=== PATIENT | male | born 1950 ===

== ENCOUNTER → 2024-05-13 10:38 | Outpatient (REF) | payer MEDICARE, OTHER, SELFPAY | LOC: CLAB 10:38 | PROVIDERS: ATTENDING PHYSICIAN Specialist | DX: R97.20 Elevated prostate specific antigen [PSA] (principal) | CPT/HCPCS: 88305 ==

== ENCOUNTER → 2024-05-29 07:53 | Outpatient (REF) | payer MEDICARE, OTHER, SELFPAY | LOC: RAD 07:53 | PROVIDERS: ATTENDING PHYSICIAN Specialist; FAMILY PHYSICIAN Family Medicine | DX: C61 Malignant neoplasm of prostate (principal) | CPT/HCPCS: 78306; A9503 ==

== ENCOUNTER → 2024-06-09 19:00 | Outpatient (REF) | payer MEDICARE, OTHER, SELFPAY | LOC: MRI 19:00 | PROVIDERS: ATTENDING PHYSICIAN Specialist; FAMILY PHYSICIAN Family Medicine | DX: C61 Malignant neoplasm of prostate (principal) | CPT/HCPCS: 72197; A9575 ==

== ENCOUNTER 2024-11-28 16:17 | Inpatient (IN) | payer MEDICARE, OTHER, SELFPAY ==
[2024-11-28 13:12] VITALS: BP 136/80
--- NOTE | 2024-11-28 14:22 | ED.GENMED ---
History of Present Illness
General
Chief Complaint: Urinary Symptoms
Source: patient and spouse
Exam Limitations: none
Time Seen by Provider: 11/28/24 13:49
Nursing documentation reviewed up to this point in time: agreed with
History of Present Illness
History of Present Illness:
74-year-old male with history metastatic prostate cancer presenting to the emergency department with chills. Patient reports that he noticed shaking chills yesterday midday and was unable to get warm despite multiple blankets. He states he also
felt very weak. Today�chills are somewhat better than they were yesterday although he still feels intermittently cold. He talked to his oncologist who recommended that he come to the emergency department for a sepsis workup.
Patient denies any fever, his temp is been 99F at home. He denies any shortness of breath or cough. He denies any abdominal pain or new back pain.
Patient does self catheterize often given prostate cancer. He has no history of UTIs.
No known sick contacts.
Patient is currently undergoing treatment for prostate cancer.
Review of Systems
Review of Systems
Allergies reviewed?: Yes
All Other Systems: ROS reviewed and negative except as documented in HPI and ROS
Phy Exam
Physical Exam
Physical Exam:
Vitals: Tachycardic, mildly hypertensive, otherwise vital signs stable. Afebrile
General: Patient is well appearing, no acute distress
Skin: Warm and dry, no rashes or lesions
Head: Normocephalic, atraumatic
Eyes: Sclera nonicteric.
Throat: Protecting airway
Neck: Normal ROM, no cervical spine tenderness, no meningismus
Cardiac: Regular rate and rhythm, no murmurs. Perfusing well.
Pulm: Normal respiratory effort, no wheezes, rales, rhonchi heard on exam
.
Abdomen: Abdomen soft. No abdominal tenderness. No CVA tenderness
Extremities: No evidence of cyanosis or edema. Palpable DP pulses bilaterally.
Neuro: AAOx3. Grossly intact.
Psychiatric: Normal affect.
Course
Orders/Labs/Results
Orders:
Orders
11/28/24 14:00
0.9% Sodium Chloride 1000 ml [Nss] 1,000 ml IV BOLUS
11/28/24 14:30
COVID-19 Antigen Urgent
Source: Nasal Swab
Complete Blood Count/With Diff Urgent
Comprehensive Metabolic Panel Urgent
Lactic Acid Q4H
Comment: CANCEL 2nd LACTIC ACID IF 1st LACTIC ACID IS LESS THAN 2
Urinalysis Reflex To Culture Urgent
Date Specimen was Collected: 11/28/24
Time Specimen was Collected: 14:28
Urine Microscopic Reflex Cult Urgent
Blood Culture Q30M
[facility]OUIS Source: Blood/Venous
Specimen Description:
Blood Culture Q30M
[facility] Source: Blood/Venous
Specimen Description:
Urine Culture Urgent
[facility]OUIS Source: U
Specimen Description:
Date Specimen was Collected: 11/28/24
Time Specimen was Collected: 14:28
11/28/24 Dinner
Regular
At Your Request: Full Participation
11/28/24 16:02
CefTRIAXone [Rocephin] 1,000 mg IV NOW STA
11/28/24 16:10
Admit/Transfer Patient As Directed
Co-Sign Provider:
Level of Care: Inpatient admission
Assign to:: Medical/Surgical
Physician / Group: kate
Diagnosis: uti
Reason for Hospitalization: uti
Expected length of stay greater than two midnights?: Yes
ELOS- Estimated Length of Stay in days: 2
I certify the patient meets the requirements for IP care: Yes
Code Status As Directed
Resuscitation Status: Full Code
PRN Pain Medication Management As Directed
May give lesser potent ordered pain med per pt: Yes
preference::
Protocol:: Medication orders for pain may be administered in a
manner that supports deferring to patient preference
when the pt is:
- Requesting an ordered lesser potent pain medication.
Least to most potent pain medications are defined
as: acetaminophen < NSAID < tramadol < opioids
(morphine, oxycodone, hydromorphone).
- Requesting a lesser dose of the same medication IF
ORDERED.
- Requesting a less intrusive route of administration
if both routes are prescribed by the provider (PO <
IV).
11/28/24 17:43
0.9% Sodium Chloride 1000 ml [Nss] 1,000 ml IV 100 mls/hr
Acetaminophen [Tylenol] 650 mg PO Q4HPRN PRN
11/28/24 17:43
Activity As Directed
Activity Level: As Tolerated
Vital Signs As Directed
Frequency: Per unit guidelines
DX Deep Vein Thrombosis Video Routine
11/28/24 20:00
Heparin 5,000 units SC Q12
11/29/24 06:00
Complete Blood Count/With Diff IN AM
Comprehensive Metabolic Panel IN AM
11/29/24 16:00
CefTRIAXone [Rocephin] 1,000 mg IV Q24H
Abnormal Lab Results
11/28/24
14:30
RBC 4.37 L 10^6/uL
(4.70-6.10)
MCH 32.3 H pg
(27.0-31.0)
Absolute Neuts (auto) 7.2 H 10^3/uL
(1.4-6.5)
Absolute Lymphs (auto) 0.2 L 10^3/uL
(1.2-3.4)
Neutrophils % 92.9 H %
(42.2-75.2)
Lymphocytes % 2.4 L %
(20.5-51.1)
Sodium 134 L mmol/L
(135-145)
Glucose 133 H mg/dl
(70-99)
Total Bilirubin 1.4 H mg/dl
(0.2-1.3)
Total Protein 6.2 L g/dl
(6.3-8.2)
Ur Occult Blood Reflex 1+ A
(Negative)
Leukocyte Esterase Rfl 3+ A
(Negative)
Urine RBC 3-6 A /HPF
(0-2)
Urine WBC (Reflex) 70-80 A /HPF
(0-5)
Urine Bacteria (Reflex) Many A
(Negative)
11/28/24 14:30
11/28/24 14:30
Vital Signs
Initial and Last Documented VS:
Initial Vital Signs
Temp Pulse Resp BP Pulse Ox
100.1 F 107 16 136/80 96
11/28/24 13:12 11/28/24 13:12 11/28/24 13:12 11/28/24 13:12 11/28/24 13:12
Last Documented Vital Signs
Temp Pulse Resp BP Pulse Ox
98.5 F 86 17 175/91 96
11/28/24 23:50 11/28/24 23:50 11/28/24 23:50 11/28/24 23:50 11/28/24 23:50
MDM/Problems Addressed
Differential Diagnosis Includes:
Not limited to: Viral illness, UTI/urosepsis, bacteremia, pneumonia, etc.
MDM/Problems Addressed:
74-year-old male currently undergoing treatment for metastatic prostate cancer presenting with history of rigors since yesterday. He is otherwise asymptomatic although does occasionally self-catheterize for urine. Temp of 100.1, tachycardic on
arrival with otherwise stable vital signs. Physical exam as above.
Given history of rigors, currently immunosuppressed � concern for underlying infectious process. Will check labs, viral studies, urine sample. Will send blood cultures. Patient has benign abdominal exam and clear lungs w/o history of URI � do not
feel imaging of chest/ abdomen indicated at this time.
Update: Urine appears infected without any other acute abnormalities noted on labs. Lactic acid is normal. Given evidence of acute UTI with history of rigors, currently immunosuppressed - feel patient should be admitted for IV antibiotics pending
blood cultures. Patient comfortable with this plan. IV rocephin given in emergency department. Patient accepted to hospitalist service in stable condition.
Chronic conditions affecting care:
Metastatic prostate cancer
Acute Exacerbation and/or Progression of Chronic Illness:
Acute UTI
*Pulse Oximetry
Patient hypoxic: no
*EKG
Interpreted by ED Provider?: NA
*Residential Support Specialist Interpretation
Rate: normal
Interpretation: normal
Heart Rate: 86
Rhythm: sinus
*Critical Care Note
Total Time (30-74mins, 75-104mins- exclusive of procedures): Not Applicable
Patient Management
Discussion with other providers: Hospitalist
Escalation/DeEscalation of care consider admission/obs:
Admit for IV abx pending blood cultures
ED Attending Note
-
Portions of this chart may have been created with voice recognition software.� Occasional wrong word or��sound alike� substitutions may have occurred due to the inherent limitations of voice recognition software.
Discharge Plan
Departure
Patient Disposition: Admit
Date of Disposition: 11/28/24
Time of Disposition: 16:05
Presentation/result/management discussed w/ accepting MD/DO: Hospitalist
Patient with high blood pressure during this ER visit?: Yes
Condition: Good
Covid-19: Negative COVID-19
Discharge Problem:
Acute UTI
Interventions
Interventions:
*Risk Screen - Suicide Last Done: 11/28/24 18:00
*General Assessment Last Done: 11/28/24 17:56
*Neglect/Abuse Screening Last Done: 11/28/24 13:12
*ED- Fall Risk Assessment Last Done: 11/28/24 17:56
*ED COVID-19 Vaccine History Last Done: 11/28/24 18:00
*Nursing Disposition Last Done: 11/28/24 17:56
ED-Male Genitourinary Assessment Last Done: 11/28/24 13:56
Discharge Date and Time
Discharge Date/Time: 11/28/24 18:01
[2024-11-28 14:27] VITALS: BP 122/69
[2024-11-28] MEDS: NSS 1000 IV ×2 (14:35→18:32)
[2024-11-28 14:59] LABS: Urine Albumin Negative (Neg - Trace); Urine Bilirubin Negative (Negative); Urine Character Clear (Clear); Urine Color Yellow; Urine Glucose Negative (Negative); Urine Ketone Negative (Negative); Urine Leukocyte 3+ (Negative); Urine Nitrite Negative (Negative); Urine Occult Blood 1+ (Negative); Urine Urobilinogen Negative (Neg - 1+); Urine pH 6.5 (5.0-9.0)
[2024-11-28 15:00] VITALS: BP 119/67
[2024-11-28 15:05] LABS: Lactic Acid 1.6 mmol/L (0.7-2.0)
[2024-11-28 15:09] LABS: ALT (SGPT) 25 U/L (0-50); AST (SGOT) 31 U/L (17-59); Albumin 3.8 g/dl (3.5-5.0); Alkaline Phosphatase 42 U/L (38-126); Blood Urea Nitrogen 15 mg/dl (9-20); Calcium 8.5 mg/dl (8.4-10.2); Carbon Dioxide 24 mmol/L (22-30); Chloride 105 mmol/L (98-107); Glucose 133 mg/dl (70-99); Potassium 3.8 mmol/L (3.5-5.1); Sodium 134 mmol/L (135-145); Total Bilirubin 1.4 mg/dl (0.2-1.3); Total Protein 6.2 g/dl (6.3-8.2); eGFR > 60.00
[2024-11-28 15:20] LABS: % Basophils 0.3 % (0-2); % Immature Granulocytes 0.4 % (0-0.5); % Lymphocytes 2.4 % (20.5-51.1); % Neutrophils 92.9 % (42.2-75.2); Absolute Lymphocytes 0.2 10^3/uL (1.2-3.4); Absolute Monocytes 0.3 10^3/uL (0.1-0.6); Absolute Neutrophils 7.2 10^3/uL (1.4-6.5); COVID-19 Antigen Negative (Negative); Hematocrit 39.2 % (39.0-52.0); Hemoglobin 14.1 g/dL (13.0-18.0); Mean Corpuscular Hgb 32.3 pg (27.0-31.0); Mean Corpuscular Volume 89.7 fL (80.0-94.0); Mean Platelet Volume 10.3 fL (7.4-10.4); Nucleated Red Blood Cells % 0 % (-); Platelet Count 150 10^3/uL (130-400); Red Blood Cell Count 4.37 10^6/uL (4.70-6.10); Red Cell Dist. Width 11.9 % (11.5-14.5); White Blood Cell Count 7.8 10^3/uL (4.8-10.8)
[2024-11-28 15:22] LABS: Urine Amorphous Seen; Urine White Cell 70-80 /HPF (0-5)
[2024-11-28 15:24] LABS: Urine Bacteria Many (Negative)
--- NOTE | 2024-11-28 16:12 | HPS.HSE ---
Addendum entered and electronically signed by Chandu Ortiz MD 11/28/24 16:20:
Hold Xtandi.
Original Note:
Family Physician
-
Family Physician: Leena Rm, DO
Chief Complaint
-
chills
History of Present Illness
74-year-old male past medical history of metastatic prostate cancer on Xtandi, obstructive sleep apnea since July presenting with chills. He started noticing shaking and chills yesterday and was unable to get warm despite multiple blankets.
Also with weakness. His oncologist recommended he come to the emergency room for sepsis workup. He denies fever. Denies shortness of breath or cough. Denies abdominal pain or new back pain.
He does self catheterize due to prostate cancer. No prior history of UTIs. Denies any urinary symptoms such as cloudy urine, increased urinary decreased urine output. No sick contacts.
Medical History
Past Medical History
Past Medical History: Reports Other (metastatic prostate cancer on Xtandi, obstructive sleep apnea )
Past Surgical History: Reports Other (Bilateral hip replacements)
Social History
Tobacco: Non-smoker
Alcohol: Occasional
Drug: None
Family History
Family History: Not pertinent
Allergies / Home Medications
Allergies reflects when Allergies were last updated in [facility].
Home Medications with original date entered in [facility]
Allergy/Medication List:
Allergies
Allergy/AdvReac Type Severity Reaction Status Date / Time
morphine Allergy Pharmacy Verified 11/28/24 13:12
to Review
Review of Systems
-
History Source: Patient
A 12 point ROS was completed and negative except as noted: Yes
Constitutional: Reports No Symptoms
EENT: Reports No Symptoms
Respiratory: Reports No Symptoms
Cardiac: Reports No Symptoms
Abdomen/GI: Reports No Symptoms
: Reports No Symptoms
Musculoskeletal: Reports No Symptoms
Skin: Reports No Symptoms
Neurological: Reports No Symptoms
Endocrine: Reports No Symptoms
Hematologic/Lymphatic: Reports No Symptoms
Psych: Reports No Symptoms
Physical Exam
Vital Signs
Vital Signs
Temp Pulse Resp BP Pulse Ox
100.1 F 107 16 136/80 96
11/28/24 13:12 11/28/24 13:12 11/28/24 13:12 11/28/24 13:12 11/28/24 13:12
Physical Exam
General: Well Developed, Well Nourished and No Apparent Distress
HEENT: NormoCephalic, Moist mucous membranes and Atraumatic
Respiratory: Clear
Cardiac: S1/S2 and Regular Rhythm; No Murmur or Rub
GI: Soft, Non Tender, Non Distended and Normal Bowel Sounds; No Organomegaly
Rectal: Deferred by Provider
Musculoskeletal: No Clubbing, No Cyanosis and No Edema
Skin: No Rash
Neuro: Nonfocal/grossly intact
Laboratory Results
-
11/28/24 14:30
11/28/24 14:30
Laboratory Results
Lactic Acid Cancelled 11/28/24 18:00
Total Bilirubin 1.4 mg/dl (0.2-1.3) H 11/28/24 14:30
AST 31 U/L (17-59) 11/28/24 14:30
ALT 25 U/L (0-50) 11/28/24 14:30
Alkaline Phosphatase 42 U/L (38-126) 11/28/24 14:30
Data Reviewed
-
Lab Data: Labs Reviewed by me
Old Records: Reviewed
Impression/Plan
-
IMPRESSION:
PLAN:
# Sepsis (fever, tachycardia) secondary to self-catheterization associated UTI
-Urinalysis 70-80 WBC, +3 leukocyte esterase
- Urine culture, blood cultures
- IV fluids
- Ceftriaxone
Prostate cancer
- Patient self catheterizes
- Continue self-catheterization protocol
Obstructive sleep apnea
- Continue CPAP
Full code
DVT prophylaxis�heparin
Regular diet
[2024-11-28] MEDS: ROCEPHIN 1000 MG IV (17:02)
[2024-11-28 17:06] VITALS: BP 109/64
[2024-11-28 17:59] VITALS: BP 109/62
[2024-11-28 18:00] VITALS: BMI 32.8
--- NOTE | 2024-11-28 18:00 | PTCARENOTE ---
Received patient from ED on stretcher, walked from stretcher to bed. AAOx3 able to make needs known, pleasant during interactions. Temp noted to be 100.7 shortly after arrival. PRN Tylenol administered. brought in CPAP machine. Call lima within
reach
[2024-11-28] MEDS: TYLENOL 650 MG PO (18:41)
[2024-11-28] MEDS: HEPARIN 5000 UNITS SC (20:36)
[2024-11-28 23:50] VITALS: BP 175/91
[2024-11-29] MEDS: NSS 1000 IV ×2 (05:54→15:44)
[2024-11-29 06:35] VITALS: BMI 32.8
[2024-11-29 07:26] VITALS: BP 127/71
[2024-11-29 07:42] LABS: % Basophils 0.2 % (0-2); % Eosinophils 0.2 % (0-6); % Immature Granulocytes 0.4 % (0-0.5); % Lymphocytes 7.4 % (20.5-51.1); % Monocytes 9.8 % (1.7-9.3); Absolute Lymphocytes 0.3 10^3/uL (1.2-3.4); Absolute Monocytes 0.4 10^3/uL (0.1-0.6); Absolute Neutrophils 3.7 10^3/uL (1.4-6.5); Hematocrit 36.2 % (39.0-52.0); Hemoglobin 13.2 g/dL (13.0-18.0); Mean Corp Hgb Conc. 36.5 g/dL (33.0-37.0); Mean Corpuscular Hgb 32.9 pg (27.0-31.0); Mean Corpuscular Volume 90.3 fL (80.0-94.0); Mean Platelet Volume 10.3 fL (7.4-10.4); Nucleated Red Blood Cells % 0 % (-); Platelet Count 125 10^3/uL (130-400); Red Blood Cell Count 4.01 10^6/uL (4.70-6.10); White Blood Cell Count 4.5 10^3/uL (4.8-10.8)
[2024-11-29 08:02] LABS: ALT (SGPT) 29 U/L (0-50); AST (SGOT) 31 U/L (17-59); Albumin 3.2 g/dl (3.5-5.0); Alkaline Phosphatase 44 U/L (38-126); Blood Urea Nitrogen 12 mg/dl (9-20); Calcium 8.3 mg/dl (8.4-10.2); Carbon Dioxide 26 mmol/L (22-30); Chloride 110 mmol/L (98-107); Estimated Creatinine Clearance 105 ml/min; Glucose 121 mg/dl (70-99); Potassium 3.7 mmol/L (3.5-5.1); Sodium 141 mmol/L (135-145); Total Bilirubin 0.9 mg/dl (0.2-1.3); Total Protein 5.5 g/dl (6.3-8.2); eGFR > 60.00
[2024-11-29] MEDS: HEPARIN 5000 UNITS SC (08:53)
--- NOTE | 2024-11-29 11:53 | W.PN.HOSP.TC ---
Today's Communication/Plan
-
Continue antibiotics
Await cultures
Assessment / Plan
Assessment / Plan
Gen-AAOx3, NAD
HEENT-NC, AT, anicteric, clear oral mm
Neck-supple
CV-reg, no M, +S1/S2
Lungs-clear B/L
Abd-soft, NT, ND
Ext-no edema
Musculoskeletal-no cyanosis, clubbing
Skin-warm and dry
Neuro-grossly non-focal
Psych-calm, cooperative
Sepsis due to catheter associated UTI -patient self catheterizes 2-3 times daily at home. This is his first infection.
Hemodynamically stable. Blood cultures are positive for Klebsiella oxytocin. Urine culture pending. Continue IV ceftriaxone.
Mild leukopenia and thrombocytopenia noted.
Hyponatremia -present on admission, resolved.
Metastatic prostate cancer -on Meredith Hicks.
Hyperlipidemia -atorvastatin.
DAMION -CPAP at bedtime.
Obesity due to excess calories
Full code
Updated at the bedside.
Anticipated Discharge: 24 - 48 hours
Subjective/Interval History
-
Date of Service: November 29, 2024
Patient seen/examined, feels better, no complaints.
Objective Data
-
Labs:
Laboratory Results
11/29/24
07:17
WBC 4.5 L
Hgb 13.2
Hct 36.2 L
Plt Count 125 L
Sodium 141
Potassium 3.7
Chloride 110 H
Carbon Dioxide 26
BUN 12
Creatinine 0.7
Glucose 121 H
Calcium 8.3 L
Total Bilirubin 0.9
AST 31
ALT 29
Alkaline Phosphatase 44
Vital Signs:
Vital Signs
Temp Pulse Resp BP Pulse Ox
98.7 F 82 16 127/71 95
05/17/25 07:26 11/29/24 07:26 11/29/24 07:26 11/29/24 07:26 11/29/24 07:26
I&O
11/28/24 11/29/24 11/30/24
06:59 06:59 06:59
Intake Total 480 / 480
Balance 480 / 480
Review of Systems
-
History Source: Patient
All other systems: Reviewed and negative
[2024-11-29] MEDS: ASPIR LOW (ENTERIC COATED) 81 MG PO (12:44)
[2024-11-29 15:09] VITALS: BP 124/73
[2024-11-29] MEDS: STERILE WATER FOR INJECTION 10 ML IV (17:12)
[2024-11-29] MEDS: ROCEPHIN 1000 MG IV (17:12)
[2024-11-29] MEDS: LOVENOX 40 MG SC (17:13)
[2024-11-29] MEDS: LIPITOR 40 MG PO (17:13)
[2024-11-29 23:00] VITALS: BP 113/68
[2024-11-30] MEDS: NSS 1000 IV (03:48)
[2024-11-30 06:19] LABS: % Basophils 0.6 % (0-2); % Eosinophils 2.4 % (0-6); % Immature Granulocytes 0.3 % (0-0.5); % Lymphocytes 18.9 % (20.5-51.1); % Monocytes 11.3 % (1.7-9.3); % Neutrophils 66.5 % (42.2-75.2); Absolute Eosinophils 0.1 10^3/uL (0-0.7); Absolute Lymphocytes 0.6 10^3/uL (1.2-3.4); Absolute Monocytes 0.4 10^3/uL (0.1-0.6); Absolute Neutrophils 2.2 10^3/uL (1.4-6.5); Hematocrit 37.4 % (39.0-52.0); Hemoglobin 13.2 g/dL (13.0-18.0); Mean Corp Hgb Conc. 35.3 g/dL (33.0-37.0); Mean Corpuscular Hgb 32.2 pg (27.0-31.0); Mean Corpuscular Volume 91.2 fL (80.0-94.0); Nucleated Red Blood Cells % 0 % (-); Platelet Count 124 10^3/uL (130-400); Red Cell Dist. Width 12.1 % (11.5-14.5); White Blood Cell Count 3.3 10^3/uL (4.8-10.8)
[2024-11-30 07:17] VITALS: BP 150/84
[2024-11-30] MEDS: ASPIR LOW (ENTERIC COATED) 81 MG PO (08:43)
--- NOTE | 2024-11-30 10:20 | W.PN.HOSP.TC ---
Today's Communication/Plan
-
Continue antibiotics
Stop IV fluids
Assessment / Plan
Assessment / Plan
Gen-AAOx3, NAD
HEENT-NC, AT, anicteric, clear oral mm
Neck-supple
CV-reg, no M, +S1/S2
Lungs-clear B/L
Abd-soft, NT, ND
Ext-no edema
Musculoskeletal-no cyanosis, clubbing
Skin-warm and dry
Neuro-grossly non-focal
Psych-calm, cooperative
Sepsis due to catheter associated UTI -patient self catheterizes 2-3 times daily at home. This is his first infection.
Hemodynamically stable. Blood cultures are positive for Klebsiella oxytocin. Urine culture pending. Continue IV ceftriaxone.
Mild leukopenia and thrombocytopenia noted.
I spoke with microbiology lab, blood culture sensitivity will be resulted on Sunday.
Hyponatremia -present on admission, resolved.
Metastatic prostate cancer -on Xtandi, Lupron.
Hyperlipidemia -atorvastatin.
DAMION -CPAP at bedtime.
Obesity due to excess calories
Full code
Dispo -anticipate discharge Sunday once blood culture sensitivity resulted. Outpatient follow-up with Dr. Mcneal, PCP.
Updated at the bedside.
Anticipated Discharge: Within 24 hours
Subjective/Interval History
-
Date of Service: November 30, 2024
Patient seen and examined. No complaints.
Objective Data
-
Labs:
Laboratory Results
11/30/24
05:55
WBC 3.3 L
Hgb 13.2
Hct 37.4 L
Plt Count 124 L
Vital Signs:
Vital Signs
Temp Pulse Resp BP Pulse Ox
98.2 F 70 18 150/84 97
11/30/24 07:17 11/30/24 07:17 11/30/24 07:17 11/30/24 07:17 11/30/24 07:17
I&O
11/29/24 11/30/24 12/01/24
06:59 06:59 06:59
Intake Total 480 / 480 180 / 180
Output Total 700 / 700
Balance 480 / 480 -520 / -520
Review of Systems
-
History Source: Patient
All other systems: Reviewed and negative
--- NOTE | 2024-11-30 13:05 | CM ---
CM met with Willian at bedside to complete IA. Pt admitted with UTI; on IV abx at this time.
Willian lives with his in a 'channing home' style home with 2 entry steps; 10 steps to the upper level. He reports being (I) amb and adls, no DME in the home.
Plan: Discharge to home with no anticipated needs.
PCP: Dr. Rm
Pharm: [facility] in [place]
[2024-11-30 14:56] VITALS: BP 127/73
[2024-11-30] MEDS: STERILE WATER FOR INJECTION 10 ML IV (16:00)
[2024-11-30] MEDS: ROCEPHIN 1000 MG IV (16:01)
[2024-11-30] MEDS: LOVENOX 40 MG SC (17:08)
[2024-11-30] MEDS: LIPITOR 40 MG PO (17:08)
[2024-11-30 23:00] VITALS: BP 142/81
[2024-12-01 06:00] VITALS: BMI 37.0
[2024-12-01 06:59] LABS: % Basophils 0.7 % (0-2); % Eosinophils 3.9 % (0-6); % Lymphocytes 25.4 % (20.5-51.1); % Monocytes 12.7 % (1.7-9.3); % Neutrophils 56.3 % (42.2-75.2); Absolute Eosinophils 0.1 10^3/uL (0-0.7); Absolute Lymphocytes 0.8 10^3/uL (1.2-3.4); Absolute Monocytes 0.4 10^3/uL (0.1-0.6); Absolute Neutrophils 1.7 10^3/uL (1.4-6.5); Hematocrit 36.6 % (39.0-52.0); Hemoglobin 12.8 g/dL (13.0-18.0); Mean Corpuscular Hgb 31.7 pg (27.0-31.0); Mean Corpuscular Volume 90.6 fL (80.0-94.0); Mean Platelet Volume 10.1 fL (7.4-10.4); Nucleated Red Blood Cells % 0 % (-); Platelet Count 142 10^3/uL (130-400); Red Blood Cell Count 4.04 10^6/uL (4.70-6.10); Red Cell Dist. Width 12.2 % (11.5-14.5); White Blood Cell Count 3.1 10^3/uL (4.8-10.8)
[2024-12-01 07:05] VITALS: BP 142/84
[2024-12-01] MEDS: ASPIR LOW (ENTERIC COATED) 81 MG PO (07:33)
--- NOTE | 2024-12-01 12:12 | CM ---
Patient seen at bedside
IMM explained & signed. In chart
PLAN: Home, no needs
to transport
--- NOTE | 2024-12-01 13:43 | W.DS.TRANS ---
DC Summary - Assistant Branch Manager
-
Discharge Instructions:
Discharge Diagnosis/Procedures Sepsis, catheter associated UTI, leukopenia,
thrombocytopenia
Diet Regular
Activity As tolerated
Driving Restrictions As prior to admission
Bathing Restrictions None
Blood Work CBC in 1 week with your primary care doctor
Instructions:
Stand-Alone Forms:
Changes to Home Medications: Yes
Discharge Medications:
DC Medications w/original date entered in [facility] Receive
aspirin 81 mg tablet,delayed release 81 mg PO DAILY Blood Clot Prevention/Tx 11/28/24
atorvastatin 40 mg tablet (Lipitor) 40 mg PO QPM High Cholesterol 11/28/24
cholecalciferol (vitamin D3) 25 mcg (1,000 unit) tablet (Vitamin D3) 25 mcg PO DAILY Supplement 11/28/24
enzalutamide 80 mg tablet (Xtandi) 80 mg PO BID Cancer 11/28/24
famotidine 20 mg tablet (Pepcid) 20 mg PO Q48H Gastrointestinal Issue 11/28/24
omega 3-fpz-rbv-fish oil 1,000 mg (120 mg-180 mg) capsule (Fish Oil) 1 cap PO DAILY Supplement 11/28/24
psyllium 1 packet PO DAILY Gastrointestinal Issue 11/28/24
vitamin E 268 mg (400 unit) capsule 268 mg PO DAILY Supplement 11/28/24
cefdinir 300 mg capsule 300 mg PO Q12H #14 caps 12/01/24
Home Medication Changes
Antibiotics for additional 7 days
Pending Results: No
[2024-12-01 13:59] VITALS: BP 159/95
== END 2024-12-01 14:02 | disposition home or self-care (01) | DRG 698 ==
LOC: 3 WEST ACU 16:17
PROVIDERS: Emergency Medicine; Hospitalist; Physician Assistant; ADMITTING PHYSICIAN Hospitalist; ATTENDING PHYSICIAN Internal Medicine; EMERGENCY PHYSICIAN Emergency Medicine; FAMILY PHYSICIAN Family Medicine
DX: T83.518A Infection and inflammatory reaction due to other urinary catheter, initial encounter (principal); A41.89 Other specified sepsis; D84.9 Immunodeficiency, unspecified; E87.1 Hypo-osmolality and hyponatremia; N39.0 Urinary tract infection, site not specified; D69.6 Thrombocytopenia, unspecified; E78.5 Hyperlipidemia, unspecified; E66.09 Other obesity due to excess calories; C61 Malignant neoplasm of prostate; G47.33 Obstructive sleep apnea (adult) (pediatric); Y84.6 Urinary catheterization as the cause of abnormal reaction of the patient, or of later complication, without mention of misadventure at the time of the procedure; Y92.9 Unspecified place or not applicable; Y73.2 Prosthetic and other implants, materials and accessory gastroenterology and urology devices associated with adverse incidents; Z96.643 Presence of artificial hip joint, bilateral; Z88.5 Allergy status to narcotic agent; Z68.36 Body mass index [BMI] 36.0-36.9, adult; Z11.52 Encounter for screening for COVID-19
CPT/HCPCS: 80053; 81003; 81015; 83605; 85025; 87040; 87077; 87086; 87149; 87186; 87205; 87811; 96361; 96374; 99284

== ENCOUNTER → 2025-02-13 11:08 | Outpatient (REF) | payer MEDICARE, OTHER, SELFPAY | LOC: PAVMRI 11:08 | PROVIDERS: ATTENDING PHYSICIAN Internal Medicine Hematology & Oncology; FAMILY PHYSICIAN Family Medicine | DX: C61 Malignant neoplasm of prostate (principal) | CPT/HCPCS: 72157; A9575 ==

== ENCOUNTER → 2025-04-21 13:05 | Outpatient (REF) | payer MEDICARE, OTHER, SELFPAY | LOC: PAVMRI 13:05 | PROVIDERS: ATTENDING PHYSICIAN Internal Medicine Hematology & Oncology; FAMILY PHYSICIAN Family Medicine | DX: C61 Malignant neoplasm of prostate (principal) | CPT/HCPCS: 72156; A9575 ==